=== PATIENT | female | born 1940 | race Caucasian/White ===

== ENCOUNTER 2018-11-06 10:58 | Emergency (ER) | payer MEDICARE, MEDICAID ==
[~2018-11-06] VITALS: Ht 167.6 cm; Wt 52.7 kg
[~2018-11-06 10:58] MED LIST: CEPH-357 PO
[2018-11-06] MEDS ORDERED: traMADol 50MG tablet PO ONE (12:35)
[2018-11-06] MEDS ORDERED: TETanus/Pertussis (Acell)/Diphther VAC/PF (Tdap-Adult) 0.5ml syringe IM ONE (12:35)
[2018-11-06] MEDS ORDERED: bacitracin 15gm ointment TP ONE (12:55)
[2018-11-06 13:42] VITALS: BP 152/73
== END 2018-11-06 13:44 | disposition home or self-care (01) ==
LOC: ER 10:59
DX: S42.492A Other displaced fracture of lower end of left humerus, initial encounter for closed fracture (principal); S80.02XA Contusion of left knee, initial encounter; E78.00 Pure hypercholesterolemia, unspecified; I10 Essential (primary) hypertension; Z79.899 Other long term (current) drug therapy; Z90.710 Acquired absence of both cervix and uterus; Z98.890 Other specified postprocedural states; W01.0XXA Fall on same level from slipping, tripping and stumbling without subsequent striking against object, initial encounter; Y93.89 Activity, other specified; Y92.89 Other specified places as the place of occurrence of the external cause; Y99.8 Other external cause status
CPT/HCPCS: 29105; 73080; 73564; 90471; 90715; 99284

== ENCOUNTER 2018-11-13 09:25 | Outpatient (CLI) | payer MEDICARE, MEDICAID ==
[2018-11-13 09:25] VITALS: BP 133/74
== END 2018-11-13 10:39 | disposition home or self-care (01) ==
LOC: ORTHO 09:25
PROVIDERS: ATTEND Nurse Practitioner Family
DX: S42.492A Other displaced fracture of lower end of left humerus, initial encounter for closed fracture (principal); W18.41XA Slipping, tripping and stumbling without falling due to stepping on object, initial encounter; Y93.89 Activity, other specified; Y92.89 Other specified places as the place of occurrence of the external cause; Y99.8 Other external cause status; Z88.2 Allergy status to sulfonamides; Z88.1 Allergy status to other antibiotic agents
CPT/HCPCS: 99213; A4590

== ENCOUNTER 2018-11-20 09:39 | Outpatient (CLI) | payer MEDICARE, MEDICAID ==
[2018-11-20 09:39] VITALS: BP 141/77
== END 2018-11-20 11:17 | disposition home or self-care (01) ==
LOC: ORTHO 09:39
PROVIDERS: ATTEND Nurse Practitioner Family
DX: S42.492D Other displaced fracture of lower end of left humerus, subsequent encounter for fracture with routine healing (principal); Z88.2 Allergy status to sulfonamides; Z88.1 Allergy status to other antibiotic agents; W18.41XD Slipping, tripping and stumbling without falling due to stepping on object, subsequent encounter
CPT/HCPCS: 99213

== ENCOUNTER 2018-11-22 09:25 | Outpatient (CLI) | payer MEDICARE, MEDICAID ==
[2018-11-22 09:18] VITALS: BP 142/72
== END 2018-11-22 10:12 | disposition home or self-care (01) ==
LOC: ORTHO 09:25
PROVIDERS: ATTEND Nurse Practitioner Family
DX: S42.402A Unspecified fracture of lower end of left humerus, initial encounter for closed fracture (principal); I10 Essential (primary) hypertension; X58.XXXA Exposure to other specified factors, initial encounter; Y93.89 Activity, other specified; Y92.89 Other specified places as the place of occurrence of the external cause; Y99.8 Other external cause status
CPT/HCPCS: 73080; 99213

== ENCOUNTER 2018-12-04 09:30 | Outpatient (CLI) | payer MEDICARE, MEDICAID ==
[2018-12-04 09:26] VITALS: BP 147/71
== END 2018-12-04 10:01 | disposition home or self-care (01) ==
LOC: ORTHO 09:30
PROVIDERS: ATTEND Nurse Practitioner Family
DX: S42.492D Other displaced fracture of lower end of left humerus, subsequent encounter for fracture with routine healing (principal); Z88.2 Allergy status to sulfonamides; Z88.8 Allergy status to other drugs, medicaments and biological substances; W18.31XD Fall on same level due to stepping on an object, subsequent encounter
CPT/HCPCS: 73080; 99213

== ENCOUNTER 2018-12-18 10:08 | Outpatient (CLI) | payer MEDICARE, MEDICAID ==
[2018-12-18 10:01] VITALS: BP 121/63
== END 2018-12-18 10:42 | disposition home or self-care (01) ==
LOC: ORTHO 10:08
PROVIDERS: ATTEND Nurse Practitioner Family
DX: S42.492D Other displaced fracture of lower end of left humerus, subsequent encounter for fracture with routine healing (principal); Z88.2 Allergy status to sulfonamides; Z88.8 Allergy status to other drugs, medicaments and biological substances; W01.0XXD Fall on same level from slipping, tripping and stumbling without subsequent striking against object, subsequent encounter
CPT/HCPCS: 73080; 99213; A4590

== ENCOUNTER 2019-01-02 16:01 | Outpatient (CLI) | payer MEDICARE, MEDICAID ==
[2019-01-02 15:58] VITALS: BP 145/69
== END 2019-01-02 16:22 | disposition home or self-care (01) ==
LOC: ORTHO 16:01
PROVIDERS: ATTEND Orthopaedic Surgery
DX: S42.495D Other nondisplaced fracture of lower end of left humerus, subsequent encounter for fracture with routine healing (principal); Z88.2 Allergy status to sulfonamides; Z88.8 Allergy status to other drugs, medicaments and biological substances; Z96.649 Presence of unspecified artificial hip joint; W01.0XXD Fall on same level from slipping, tripping and stumbling without subsequent striking against object, subsequent encounter
CPT/HCPCS: 73080; 99213

== ENCOUNTER 2019-01-30 14:53 | Outpatient (CLI) | payer MEDICARE, MEDICAID ==
[2019-01-30 15:54] VITALS: BP 136/75
== END 2019-01-30 15:41 | disposition home or self-care (01) ==
LOC: ORTHO 14:53
PROVIDERS: ATTEND Orthopaedic Surgery
DX: S42.492D Other displaced fracture of lower end of left humerus, subsequent encounter for fracture with routine healing (principal); X58.XXXD Exposure to other specified factors, subsequent encounter
CPT/HCPCS: 73070; 99213

== ENCOUNTER 2019-02-02 19:34 | Emergency (ER) | payer MEDICARE, MEDICAID ==
[~2019-02-02] VITALS: Ht 167.6 cm; Wt 52.7 kg
[2019-02-02] MEDS ORDERED: TRAM50TA2 PO (19:57)
[2019-02-02] MEDS ORDERED: LIDOcaine 1% w/epiNEPHrine 1:200,000 30ml vial IM ONE (21:20)
[2019-02-02] MEDS ORDERED: acetaminophen 325mg tablet PO ONE (21:45)
[2019-02-02] MEDS ORDERED: LIDOcaine/epinephrine TOPICAL 5 ML BTL TOP ONE ×2 (21:50→23:25)
[2019-02-02] MEDS ORDERED: CEPH-572 PO (22:52)
[2019-02-03 00:30] VITALS: BP 144/82
== END 2019-02-03 00:33 | disposition home or self-care (01) ==
LOC: ER 19:35
DX: S41.111A Laceration without foreign body of right upper arm, initial encounter (principal); S41.112A Laceration without foreign body of left upper arm, initial encounter; S50.02XA Contusion of left elbow, initial encounter; E78.00 Pure hypercholesterolemia, unspecified; I10 Essential (primary) hypertension; Z90.710 Acquired absence of both cervix and uterus; Z98.890 Other specified postprocedural states; Z88.1 Allergy status to other antibiotic agents; W01.198A Fall on same level from slipping, tripping and stumbling with subsequent striking against other object, initial encounter; Y93.89 Activity, other specified; Y92.090 Kitchen in other non-institutional residence as the place of occurrence of the external cause; Y99.9 Unspecified external cause status
CPT/HCPCS: 99284; J3490

== ENCOUNTER 2019-02-04 09:27 | Emergency (ER) | payer MEDICARE ==
[~2019-02-04] VITALS: Ht 167.6 cm; Wt 52.7 kg
[~2019-02-04 09:27] MED LIST changes: -CEPH-357 PO; +CEPH-572 PO; +TRAM50TA2 PO
[2019-02-04 09:37] VITALS: BP 131/59
== END 2019-02-04 11:09 | disposition home or self-care (01) ==
LOC: ER 09:28
DX: S41.111D Laceration without foreign body of right upper arm, subsequent encounter (principal); S51.012D Laceration without foreign body of left elbow, subsequent encounter; E78.00 Pure hypercholesterolemia, unspecified; I10 Essential (primary) hypertension; Z90.710 Acquired absence of both cervix and uterus; Z98.890 Other specified postprocedural states; Z88.2 Allergy status to sulfonamides; Z88.1 Allergy status to other antibiotic agents; W18.49XD Other slipping, tripping and stumbling without falling, subsequent encounter
CPT/HCPCS: 99284

== ENCOUNTER 2019-02-06 13:05 | Outpatient (CLI) | payer MEDICARE, MEDICAID | END 2019-02-06 13:35 | disposition home or self-care (01) | LOC: ORTHO 13:05 | PROVIDERS: ATTEND Orthopaedic Surgery | DX: S42.492D Other displaced fracture of lower end of left humerus, subsequent encounter for fracture with routine healing (principal); X58.XXXD Exposure to other specified factors, subsequent encounter | CPT/HCPCS: G0463 ==

== ENCOUNTER 2019-03-01 19:20 | Emergency (ER) | payer MEDICARE, MEDICAID ==
[~2019-03-01] VITALS: Ht 167.6 cm; Wt 52.7 kg
[~2019-03-01 19:20] MED LIST changes: -CEPH-572 PO
[2019-03-01] MEDS ORDERED: AMLO2.5T2 PO (19:35)
[2019-03-01] MEDS ORDERED: LOSA25TA96 PO (19:35)
[2019-03-01] MEDS ORDERED: HYDROcodone/acetaminophen 5mg/325mg tablet PO ONE (19:50)
[2019-03-01] MEDS ORDERED: tranexamic acid inj. 750 MG in normal saline 100ml IV soln 100 ML IV ONE (21:00)
[2019-03-01] MEDS ORDERED: metoprolol tartrate 50mg tablet PO ONE (21:00)
[2019-03-01 22:19] LABS: BASOPHILS % (AUTO) 0.4 % (0-1); EOSINOPHILS # (AUTO) 0.1 X10'3 (0-0.9); EOSINOPHILS % (AUTO) 1.8 % (0-6); HEMATOCRIT 33.7 % (35.0-45.0); HEMOGLOBIN 11.1 g/dl (12.0-16.0); LYMPHOCYTES # (AUTO) 1.3 X10'3 (1.1-4.8); LYMPHOCYTES % (AUTO) 16.4 % (21-51); MEAN CORPUSCULAR HEMOGLOBIN 29.5 PG (27.0-31.0); MEAN CORPUSCULAR HGB CONC 32.8 g/dL (33.0-36.5); MEAN CORPUSCULAR VOLUME 89.7 FL (78-98); MEAN PLATELET VOLUME 9.4 FL (7.4-10.4); MONOCYTES # (AUTO) 0.5 X10'3 (0-0.9); MONOCYTES % (AUTO) 6.3 % (2-12); NEUTROPHILS % (AUTO) 75.1 % (42-75); PLATELET COUNT 219 X10'3 (140-440); RED BLOOD COUNT 3.75 X10'6 (4.20-5.60); RED CELL DISTRIBUTION WIDTH 14.4 % (11.5-14.5); WHITE BLOOD COUNT 7.9 X10'3 (4.5-11.0)
[2019-03-01 22:25] LABS: ALANINE AMINOTRANSFERASE 16 U/L (12-78); ALBUMIN 3.4 G/DL (3.4-5.0); ALKALINE PHOSPHATASE 75 IU/L (46-116); ANION GAP 9 (8-16); ASPARTATE AMINO TRANSFERASE 15 U/L (10-37); BILIRUBIN,TOTAL 0.2 MG/DL (0.1-1.0); BLOOD UREA NITROGEN 16 MG/DL (7-18); BUN/CREATININE RATIO 24.2 (6.6-38.0); CALCIUM 8.6 MG/DL (8.5-10.1); CHLORIDE 104 MMOL/L (99-107); CREATININE 0.66 MG/DL (0.40-0.90); GLUCOSE 115 MG/DL (70-104); SODIUM 138 MMOL/L (135-145); TOTAL CARBON DIOXIDE 25.3 MMOL/L (24-32); TOTAL PROTEIN 6.8 G/DL (6.4-8.2); eGFR 86 ML/MIN
[2019-03-01 23:10] VITALS: BP 136/69
[2019-03-01] MEDS ORDERED: HYDR-3965 PO (23:11)
== END 2019-03-01 23:31 | disposition home or self-care (01) ==
LOC: ER 19:20
DX: S00.03XA Contusion of scalp, initial encounter (principal); S70.12XA Contusion of left thigh, initial encounter; I10 Essential (primary) hypertension; E78.00 Pure hypercholesterolemia, unspecified; Z88.2 Allergy status to sulfonamides; Z88.1 Allergy status to other antibiotic agents; Z90.710 Acquired absence of both cervix and uterus; W18.30XA Fall on same level, unspecified, initial encounter; Y93.89 Activity, other specified; Y92.89 Other specified places as the place of occurrence of the external cause; Y99.8 Other external cause status
CPT/HCPCS: 36415; 70450; 73502; 73700; 80053; 85025; 96365; 99284; J7030